=== PATIENT | female | born 1980 | race Caucasian/White ===

== ENCOUNTER → 2016-11-15 | Outpatient (CLI) | payer OTHER ==
[2016-11-15 18:03] LABS: PREG INTERNAL NEGATIVE QC NEG CLEAR BACKGROUND; PREG INTERNAL POSITIVE QC POS CONTROL LINE
== END | disposition home or self-care (01) ==
LOC: C.LAB1850 16:52
PROVIDERS: ATTEND Obstetrics & Gynecology
DX: N91.2 Amenorrhea, unspecified (principal)

== ENCOUNTER → 2017-05-27 | Outpatient (CLI) | payer BC ==
[2017-05-27 08:24] LABS: CALCULATED INSULIN SENSITIVITY 0.4; GLUCOSE LOG 1.959; INSULIN FASTING 3.5 mU/L (3-25); INSULIN LOG 0.5441; PROLACTIN 10.53 ng/mL; THYROID STIMULATING HORMONE 2.53 uIu/ml (0.300-4.500)
== END | disposition home or self-care (01) ==
LOC: C.LAB 07:14
PROVIDERS: ATTEND Obstetrics & Gynecology
DX: Z31.41 Encounter for fertility testing (principal)

== ENCOUNTER → 2017-06-05 | Outpatient (CLI) | payer BC ==
--- NOTE | 2017-06-05 11:44 | DIAGNOSTIC IMAGING REPORT ---
HYSTEROSALPINGOGRAM CLINICAL HISTORY: 36 years-old Female with FERTILITY TESTING,*DR DENG TO DO*. Infertility FLUOROSCOPY TIME: 0.8 minutes. 13 images. TECHNIQUE: Hysterosalpingogram performed in conjunction with the FILM CASTING OPERATOR department. Radiology was present to provide fluoroscopy. FINDINGS: The endometrial canal appears normal in size and morphology and is retroflexed. No endometrial contour abnormalities or filling defects. There is opacification of the fallopian tubes with bilateral spillage into the peritoneal cavity. IMPRESSION: 1. Retroflexed uterus with normal appearance of the endometrial canal. 2. Contrast spillage into the peritoneum bilaterally confirming bilateral fallopian tube patency. The above report was generated using voice recognition software. It may contain grammatical, syntax or spelling errors. Electronically signed by: Homar Puri M.D. 06/05/2017 11:43 AM Dictated Date/Time: 06/05/2017 11:41 AM
--- NOTE | 2017-06-05 11:54 | OPERATIVE REPORT ---
DATE OF OPERATION: 06/05/2017 PROCEDURE: Hystersalpingogram. SURGEON: Dr. Calista Harding. The patient was identified as a 36-year-old G0, P0 who presents for hysterosalpingogram for workup for infertility. The patient's questions were all answered prior to doing the procedure. A weighted speculum was placed in the vagina. The anterior lip of the cervix was grasped with a single tooth tenaculum after prepping the cervix with Betadine. The Tavarez's cannula was inserted into the cervical canal. Approximately 10 mL of dye were then instilled into the uterine cavity. Pictures were taken and the case was terminated. The single tooth tenaculum was removed as was the speculum. The patient tolerated the procedure well and was stable and comfortable afterwards. I attest to the content of the Intraoperative Record and any orders documented therein. Any exception s are noted below.
== END | disposition home or self-care (01) ==
LOC: C.RAD 09:29
PROVIDERS: ATTEND Obstetrics & Gynecology
DX: Z31.41 Encounter for fertility testing (principal)

== ENCOUNTER → 2017-07-30 | Outpatient (CLI) | payer BC | END | disposition home or self-care (01) | LOC: C.LAB1850 10:23 | PROVIDERS: ATTEND Obstetrics & Gynecology | DX: O09.00 Supervision of pregnancy with history of infertility, unspecified trimester (principal) ==

== ENCOUNTER → 2017-08-20 | Outpatient (CLI) | payer BC ==
[2017-08-20 18:39] LABS: URINE APPEARANCE CLEAR (CLEAR); URINE BILIRUBIN NEG (NEG); URINE COLOR YELLOW; URINE NITRITE NEG (NEG); URINE PH 5.5 (4.5-7.5); URINE SPECIFIC GRAVITY 1.026 (1.000-1.030); UROBILINOGEN NEG (NEG)
[2017-08-20 18:44] LABS: MANUAL MICROSCOPIC REQUIRED? NO; REVIEW REQ? NO
== END | disposition home or self-care (01) ==
LOC: C.LABSPEC 17:05
PROVIDERS: ATTEND Obstetrics & Gynecology
DX: O09.511 Supervision of elderly primigravida, first trimester (principal); Z3A.00 Weeks of gestation of pregnancy not specified

== ENCOUNTER → 2017-08-29 | Outpatient (CLI) | payer BC ==
[2017-08-29 18:06] LABS: BASO % 0.4 %; BASO ABS # 0.04 K/uL (0-0.2); COMPLETE YES; EOS % 1.8 %; HEMATOCRIT 38.5 % (37-47); IG% 0.3 %; LYMPH % 18.1 %; LYMPH ABS # 1.63 K/uL (1.2-3.4); MEAN CELL VOLUME 93.7 fL (80-100); MEAN CORPUSCULAR HEMOGLOBIN 31.6 pg (25-34); MEAN CORPUSCULAR HGB CONC 33.8 g/dl (32-36); MONO % 8.2 %; NEUT % 71.2 %; PLATELET COUNT 240 K/uL (130-400); RED BLOOD COUNT 4.11 M/uL (4.2-5.4); WHITE BLOOD COUNT 9.02 K/uL (4.8-10.8)
== END | disposition home or self-care (01) ==
LOC: C.LAB1850 15:31
PROVIDERS: ATTEND Obstetrics & Gynecology
DX: O09.511 Supervision of elderly primigravida, first trimester (principal); Z3A.00 Weeks of gestation of pregnancy not specified

== ENCOUNTER → 2017-08-29 | Outpatient (CLI) | payer BC | END | disposition home or self-care (01) | LOC: C.PAPS 09:10 | PROVIDERS: ATTEND Obstetrics & Gynecology | DX: O09.511 Supervision of elderly primigravida, first trimester (principal); Z3A.00 Weeks of gestation of pregnancy not specified ==

== ENCOUNTER → 2017-08-29 | Outpatient (CLI) | payer BC | END | disposition home or self-care (01) | LOC: C.LABSPEC 17:48 | PROVIDERS: ATTEND Obstetrics & Gynecology | DX: O09.511 Supervision of elderly primigravida, first trimester (principal); Z3A.00 Weeks of gestation of pregnancy not specified ==

== ENCOUNTER → 2017-10-17 | Outpatient (CLI) | payer BC | END | disposition home or self-care (01) | LOC: C.LAB1850 15:02 | PROVIDERS: ATTEND Obstetrics & Gynecology | DX: O09.512 Supervision of elderly primigravida, second trimester (principal) ==

== ENCOUNTER → 2018-01-04 | Outpatient (CLI) | payer BC | END | disposition home or self-care (01) | LOC: C.LABSPEC 13:07 | PROVIDERS: ATTEND Obstetrics & Gynecology | DX: O09.513 Supervision of elderly primigravida, third trimester (principal) ==

== ENCOUNTER → 2018-01-09 | Outpatient (CLI) | payer BC ==
[2018-01-09 17:23] LABS: HEMATOCRIT 38.7 % (37-47); HEMOGLOBIN 13.3 g/dL (12.0-16.0)
== END | disposition home or self-care (01) ==
LOC: C.LAB1850 15:20
PROVIDERS: ATTEND Obstetrics & Gynecology
DX: O09.513 Supervision of elderly primigravida, third trimester (principal); Z3A.00 Weeks of gestation of pregnancy not specified

== ENCOUNTER 2020-11-24 20:11 | Inpatient (IN) ==
[2020-11-24] MEDS ORDERED: PENICILLIN G POTASSIUM 3 MU in DEXTROSE 5% 100 ML IV PRN (20:34)
[2020-11-24] MEDS ORDERED: LACTATED RINGER'S 1,000 ML IV PRN (20:34)
[2020-11-24] MEDS ORDERED: OXYTOCIN 30 UNITS/500 ML BAG IV PRN (20:34)
[2020-11-24] MEDS ORDERED: PENICILLIN G POTASSIUM 6 MU in DEXTROSE 5% 250 ML IV STA (20:40)
[2020-11-24 20:54] LABS: Hematocrit (blood only) 39.7 % (37-47); Hemoglobin 13.5 g/dL (12.0-16.0); Mean Corpuscular Hemoglobin 31.7 pg (25-34); Mean Corpuscular Volume 93.2 fL (80-100); Mean Platelet Volume 11.5 fL (7.4-10.4); Platelet Count 200 K/uL (130-400); RDW Standard Deviation 44.1 fL (36.4-46.3); Red Blood Count 4.26 M/uL (4.2-5.4); White Blood Count 12.75 K/uL (4.8-10.8)
[2020-11-24] MEDS ORDERED: BUPIVACAINE 0.25% 30 ML VIAL ONE (21:01)
[2020-11-24] MEDS ORDERED: SODIUM CHLORIDE 0.9% INJ 10 ML VIAL ONE (21:01)
[2020-11-24] MEDS ORDERED: fentaNYL citrate 100 MCG/2 ML VIAL ONE (21:01)
[2020-11-24] MEDS ORDERED: ePHEDrine sulfate 50 MG/ML AMP ONE (21:01)
[2020-11-24] MEDS ORDERED: fentaNYL 2MCG/ML ROPIVACAINE 1.25MG/ML 100 ML BAG EPI ONE (21:02)
[2020-11-24] MEDS ORDERED: diphenhydrAMINE 50 MG/ML VIAL IV PRN (21:13)
[2020-11-24] MEDS ORDERED: ePHEDrine sulfate 50 MG/ML AMP IV PRN (21:13)
[2020-11-24] MEDS ORDERED: NALOXONE HCL 1 MG in SODIUM CHLORIDE 0.9% 1000ML 1,000 ML IV PRN (21:13)
[2020-11-24] MEDS ORDERED: ONDANSETRON INJ 2 MG/ML 2 ML VIAL IV PRN (21:13)
[2020-11-24] MEDS ORDERED: NALOXONE HCL 0.4 MG/1 ML VIAL/CARP IV PRN (21:13)
[2020-11-24] MEDS ORDERED: fentaNYL 2MCG/ML ROPIVACAINE 1.25MG/ML 100 ML BAG EPI PRN ×2 (21:13→22:39)
--- NOTE | 2020-11-24 21:13 | Anesthesiology Consultation ---
Date of Service November 24, 2020 Assessment & Plan ASA ASA2 Proposed Anesthesia Anesthesia Type: Labor Epidural Risk / Benefits Reviewed With: PT / POA / Parent / Guardian, Accepts Plan and Informed Consent Obtained History Height/Weight Height: 5 ft 10 in Weight: 97.069 kg Allergies Allergy/AdvReac Type Severity Reaction Status Date / Time Bactrim Allergy Severe ANAPHYLAXIS Verified 03/17/18 05:16 sulfamethoxazole Allergy Severe ANAPHYLAXIS Verified 11/24/20 20:20 trimethoprim Allergy Severe ANAPHYLAXIS Verified 11/24/20 20:20 Medications Home Medications Medication Instructions Recorded Confirmed Last Taken prenat.vits,xavier,jgi-drzk-yxchy 1 tab PO DAILY 03/05/20 11/24/20 11/24/20 07:00 levothyroxine 150 mcg tablet 150 mcg PO DAILY #90 tab 09/16/20 11/24/20 11/24/20 07:00 Active Medications Generic Name Dose Route Start Last Admin Trade Name Freq PRN Reason Stop Dose Admin Lactated Ringer's 1,000 mls @ 125 mls/hr 11/24/20 20:34 11/24/20 20:48 Lr IV 11/26/20 20:33 999 mls/hr .Q8H PRN Administration L&D Protocol Protocol Ropivacaine 100 ml 11/24/20 21:13 11/24/20 21:33 Fentanyl 2mcg/Ml Ropivacaine 1.25mg/Ml 100 Ml Bag EPI 11/25/20 21:12 100 ml PRN PRN Administration Pain R/T Labor Protocol Past Medical History Medical History Elderly multigravida Encounter for anatomic survey History of chicken pox PROM (premature rupture of membranes) Exercise / Class Metabolic Activity II 4-5 Yardwork/Stairs/Walk up hill Past Family History Family History Grandfather (Maternal) Diabetes Coronary heart disease Grandfather (Paternal) Coronary heart disease Mother Breast cancer Grandmother (Maternal) Breast cancer Past Surgical History Surgical History History of nasal septoplasty S/P wisdom tooth extraction Past Anesthesia History No Hx of Anesthesia Complications and No Family Hx of Anesthesia Complications History of PONV No Hx of PONV and No Hx of Motion Sickness Social History Smoking Status: Never smoker Hx Alcohol Use: Yes Alcohol type: wine Hx Substance Use: No Review of Systems denies fever/cough/ colds/ chest pain/ SOB/ BRENNON denies BRENNON Physical Exam Vital Signs Last Vital Signs Temp 36.6 C 11/24/20 20:22 Pulse 78 11/24/20 21:42 Resp 18 11/24/20 20:22 BP 125/73 11/24/20 21:42 Pulse Ox 98 11/24/20 21:38 ENMT Mouth: no TMJ abnormality and no dentition abnormality Thyromental Distance: > or= 3.5 Finger Breadths Mallampati Class: II Neck neck extension not limited Respiratory normal respiratory effort; no respiratory distress Auscultation: lungs clear to auscultation bilaterally Cardiovascular Rate/Rhythm: regular rate and regular rhythm Neurologic moves all extremities Psychiatric Orientation: alert and oriented x 3 Testing Laboratory Results 11/24/20 20:46
[2020-11-24] MEDS ORDERED: ERYTHROMYCIN OP OINT 1 GM PKT ONE (23:40)
--- NOTE | 2020-11-24 23:40 | Delivery Summary ---
Vaginal Delivery Summary Date of Service November 24, 2020 Vaginal Delivery Summary DIAGNOSES: 1. Malik intrauterine at 39w5d gestation. 2. Spontaneous onset of labor. 3. Group B Streptococcus Pos. PROCEDURE: Spontaneous vaginal delivery without laceration. SURGEON: Jessica Acevedo MD. MANUFACTURER'S REPRESENTATIVE: None. ESTIMATED BLOOD LOSS: 250 mL. COMPLICATIONS: None. PLACENTA: Spontaneous and intact with a 3-vessel cord. DISPOSITION: Stable to labor and delivery. DESCRIPTION: The patient pushed well and brought the head to in OA position. The infant's head was allowed to deliver with contraction force and no further active pushing, with the perineum protected during this time. The shoulders delivered easily with a maternal pushing effort. There was a right shoulder cord but no nuchal cord. The right shoulder was anterior. The shoulders and body delivered without any difficulty, and the infant was placed on the maternal abdomen. It was vigorous and moving all extremities, and making respiratory efforts. The cord was doubly clamped by the MD and then cut by the FOB. The placenta delivered spontaneously and was noted to be intact and with a 3VC. The cervix, vagina and perineum were examined and were found to be without defect requiring repair. The fundus was firm and lochia minimal immediately after delivery. [facility] Vaginal Delivery Charge Vaginal Delivery Codes: 19176 global code for the antepartum, delivery, and post-
[2020-11-24] MEDS ORDERED: HYDROCORTISONE ACETATE 25 MG SUPP PR PRN (23:57)
[2020-11-24] MEDS ORDERED: LACTATED RINGER'S 1,000 ML IV SCH (23:57)
[2020-11-24] MEDS ORDERED: SUPERCREAM 0.870% 15 GM JAR EXT PRN (23:57)
[2020-11-24] MEDS ORDERED: BENZOCAINE 20% AER SPR 82.5 GM CAN EXT PRN (23:57)
[2020-11-24] MEDS ORDERED: ACETAMINOPHEN 325 MG TAB PO PRN (23:57)
[2020-11-24] MEDS ORDERED: DIPHTHERIA/TETANUS/PERTUSSIS 0.5 ML SYR/VIAL IM ONE (23:57)
[2020-11-24] MEDS ORDERED: oxyCODONE/ACETAMINOPHEN 5mg/325mg TAB PO PRN (23:57)
[2020-11-25] MEDS: IBUPROFEN 600 MG TAB PO PRN ×4 (04:22→20:44)
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
[2020-11-25 06:21] LABS: Hematocrit (blood only) 35.5 % (37-47); Hemoglobin 12.1 g/dL (12.0-16.0); Mean Corpuscular Hemoglobin 31.8 pg (25-34); Mean Corpuscular Hgb Conc 34.1 g/dL (32-36); Mean Corpuscular Volume 93.2 fL (80-100); Mean Platelet Volume 11.5 fL (7.4-10.4); Platelet Count 211 K/uL (130-400); RDW Standard Deviation 44.1 fL (36.4-46.3); Red Blood Count 3.81 M/uL (4.2-5.4); White Blood Count 19.59 K/uL (4.8-10.8)
[2020-11-25] MEDS: LEVOTHYROXINE SODIUM 150 MCG TABLET PO SCH (06:21)
[2020-11-25] MEDS: DOCUSATE SODIUM 100 MG CAP PO SCH ×2 (08:00→20:45)
[2020-11-25] MEDS: PRENATAL VITAMIN 1 TAB PO SCH (08:00)
--- NOTE | 2020-11-25 09:14 | Anesthesia Procedure Note ---
Date of Service November 25, 2020 Anesthesia Post Epidural Note Vital Signs Vital Signs: Temp Pulse Resp BP Pulse Ox 36.8 C 58 L 18 111/71 98 11/25/20 07:42 11/25/20 07:42 11/25/20 07:42 11/25/20 07:42 11/25/20 07:42 Pain Intensity Episiotomy/Laceration: Pain Intensity: 1 Notes Mental Status: alert / awake / arousable and participated in evaluation Nausea / Vomiting: adequately controlled Pain: adequately controlled Airway Patency, RR, SpO2: stable & adequate BP & HR: stable & adequate Hydration State: stable & adequate Neuraxial Anesthesia: was administered and sensory block is resolving Anesthetic Complications: no major complications apparent and Pt Satisfied with anesthetic care Epidural: Removed without complications and With tip intact
[2020-11-26] MEDS: IBUPROFEN 600 MG TAB PO PRN ×2 (00:44→08:12)
--- NOTE | 2020-11-26 06:07 | Obstetrical Progress Note ---
Date of Service <Dominick Guerrero MD - Last Filed: 11/26/20 07:03> November 26, 2020 Assessment & Plan <Dominick Guerrero MD - Last Filed: 11/26/20 07:03> (1) state: 39 y/o s/p 2330 11/24/20. PPD 2. 39w5d. GBS+, treated. A pos. rubella immune. - meeting milestones - no pain - H/H reviewed. Hb 13.5->12.1->11.7. appropriate. no symptoms. - without issues. - continue routine care - dispo today. reviewed d/c instructions - 6 wk f/u (2) Hypothyroid in , antepartum: - continue home synthyroid Subjective <Dominick Guerrero MD - Last Filed: 11/26/20 07:03> Ambulation: ambulating normally Voiding: no voiding problems Passing Gas:: Yes Diet Tolerance:: regular diet Lochia:: Small Feeding Type:: breast feeding Current Pain Level(1-10): 0 Feels ready for dispo today. No concerns or complaints. Review of Systems Denies fever, chills, sweats Denies shortness of breath, chest pain, palpitations. Denies breast pain. Denies dysuria. Denies headache or changes in vision. Denies nausea/vomiting. Denies numbness, tingling, weakness. mood is good no calf pain Physical Exam <Dominick Guerrero MD - Last Filed: 11/26/20 07:03> General: Alert, oriented. No acute distress. Cardiac: Regular rate and rhythm, no murmurs/rubs/gallops. Respiratory: Clear to auscultation bilaterally, no wheezes/rales/rhonchi. No respiratory distress. Abdomen: , soft, nontender. Uterus: Uterine fundus firm, palpable 1cm below umbilicus. Lower Extremities: No lower extremity edema or swelling. No deep calf pain. Jia's negative bilaterally. Results & Data ([facility]) <Dominick Guerrero MD - Last Filed: 11/26/20 07:03> Vital Signs (Past 12 Hours) Vital Signs Temp Pulse Resp BP Pulse Ox 11/25/20 23:25 36.7 C 62 17 114/70 96 11/25/20 21:42 36.8 C 71 16 108/73 Medications Administered <Milly Crum MD - Last Filed: 11/26/20 08:32> Co-Signing Physician Notes Resident Physician Supervision Note: I interviewed and examined the patient. Discussed with Dr. Guerrero and agree with findings and plan as documented in the note. Any exceptions or clarifications are listed here: None Documented By: Milly Crum MD
[2020-11-26 06:29] LABS: Hematocrit (blood only) 35.4 % (37-47); Hemoglobin 11.7 g/dL (12.0-16.0)
[2020-11-26] MEDS: LEVOTHYROXINE SODIUM 150 MCG TABLET PO SCH (06:43)
[2020-11-26] MEDS: PRENATAL VITAMIN 1 TAB PO SCH (08:12)
[2020-11-26] MEDS: DOCUSATE SODIUM 100 MG CAP PO SCH (08:12)
== END 2020-11-26 18:15 | disposition home or self-care (01) | DRG 807 ==
LOC: OPB 20:11 → 4S1 20:11 → 4S2 11-25 02:02